=== PATIENT | male | born 1955 | race Caucasian/White ===

== ENCOUNTER 2017-02-15 07:34 | Day surgery (SDC) | payer BC ==
[~2017-02-15] VITALS: Ht 183 cm; Wt 88.0 kg
[2017-02-15] VITALS (10 sets, daily range): BP systolic 100–124; BP diastolic 54–77; PULSE 58–67; TEMP 89.8–98.4
[2017-02-15] MEDS ORDERED: ALDACTONE 25MG25 M1 PO (08:14)
[2017-02-15] MEDS ORDERED: TOPROL XL 50MG50 MG PO (08:15)
[2017-02-15] MEDS ORDERED: PRINIVIL10 MG PO (08:15)
[2017-02-15] MEDS ORDERED: LIPITOR20 MG PO (08:16)
[2017-02-15] MEDS ORDERED: COUMADIN 2MG2 MG/TAB PO ×2 (08:17→08:18)
[2017-02-15] MEDS ORDERED: TRICOR145 MG PO (08:19)
[2017-02-15] MEDS ORDERED: ASPIRIN E.C. 8181 MG PO (08:20)
[2017-02-15] MEDS ORDERED: EPA FISH OIL1 SGL PO (08:21)
[2017-02-15 08:30] LABS: INR 1.4 (0.8-3.0); PROTHROMBIN TIME 15.7 SECONDS (9.7-12.8)
[2017-02-15 08:46] LABS: CALCIUM 9.3 mg/dL (8.4-10.2); CREATININE, serum 0.92 mg/dL (0.66-1.25)
[2017-02-15] MEDS ORDERED: LOVENOX 8080 MG/0.8 SQ (08:49)
[2017-02-15 08:51] LABS: HEMATOCRIT 42.7 % (42.0-52.0); HEMOGLOBIN 14.9 g/dl (13.5-18.0); MEAN CELL VOLUME 89 fl (80.0-100.0); MEAN CORPUSCULAR HEMOGLOBIN 31 pg (27.0-31.0); MEAN CORPUSCULAR HGB CONC 35 g/dl (33.0-37.0); MEAN PLATELET VOLUME 10.2 fl (7.4-10.4); PLATELET COUNT 252 K/mm3 (130-400); WHITE BLOOD COUNT 7.4 K/mm3 (4.8-10.8)
[2017-02-16 03:37] VITALS: BP 124/79; PULSE 66; TEMP 97.6
[2017-02-16 06:47] LABS: BASO # 0.1 (0.0-0.2); BASO % 0.6 % (0.0-2.0); EOS # 0.2 (0.0-0.7); EOS % 2.7 % (0-4.0); GRAN # 6.1 (1.4-6.5); GRAN % 69.4 % (42.2-75.2); HEMATOCRIT 41.3 % (42.0-52.0); HEMOGLOBIN 13.9 g/dl (13.5-18.0); LYMPH # 1.7 (1.2-3.4); LYMPH % 19.3 % (20.0-51.0); MEAN CELL VOLUME 89 fl (80.0-100.0); MEAN CORPUSCULAR HEMOGLOBIN 30 pg (27.0-31.0); MEAN CORPUSCULAR HGB CONC 34 g/dl (33.0-37.0); MEAN PLATELET VOLUME 9.8 fl (7.4-10.4); MONO # 0.7 (0.1-0.6); MONO % 7.8 % (1.7-9.3); PLATELET COUNT 215 K/mm3 (130-400); RED BLOOD COUNT 4.63 M/mm3 (4.20-5.60); WHITE BLOOD COUNT 8.8 K/mm3 (4.8-10.8)
[2017-02-16 06:56] LABS: INR 1.3 (0.8-3.0); PROTHROMBIN TIME 14.1 SECONDS (9.7-12.8)
[2017-02-16 07:00] LABS: CALCIUM 8.9 mg/dL (8.4-10.2); CREATININE, serum 0.92 mg/dL (0.66-1.25); POTASSIUM 3.8 mmol/L (3.4-5.0)
[2017-02-16 08:40] VITALS: BP 122/71; PULSE 95; TEMP 97.5
[2017-02-16] MEDS ORDERED: TRICOR145 MG PO (11:51)
== END 2017-02-16 12:05 | disposition home or self-care (01) ==
LOC: COL.CAR 07:34 → MEDICAL 12:16 → COL.CAR 02-16 12:05
PROVIDERS: Internal Medicine Cardiovascular Disease
DX: I25.5 Ischemic cardiomyopathy (principal); I25.10 Atherosclerotic heart disease of native coronary artery without angina pectoris; I35.0 Nonrheumatic aortic (valve) stenosis; I25.2 Old myocardial infarction; E78.2 Mixed hyperlipidemia; Z79.01 Long term (current) use of anticoagulants; Z95.818 Presence of other cardiac implants and grafts; Z86.73 Personal history of transient ischemic attack (TIA), and cerebral infarction without residual deficits; Z82.49 Family history of ischemic heart disease and other diseases of the circulatory system
CPT/HCPCS: OP; C1721; C1894; C1895; C1898; J0690; J2250; J3010; J7030

== ENCOUNTER 2020-05-19 09:25 | Day surgery (SDC) | payer MEDICARE, BC ==
[~2020-05-19] VITALS: Ht 182.9 cm; Wt 87.4 kg
[~2020-05-19 09:25] MED LIST: ALDACTONE 25MG25 M1 PO; ASPIRIN E.C. 8181 MG PO; COUMADIN 2MG2 MG/TAB PO; COUMADIN 5MG5 MG/TAB PO; EPA FISH OIL1 SGL PO; LIPITOR20 MG PO; LOVENOX 8080 MG/0.8 SQ; PRINIVIL10 MG PO; TOPROL XL 50MG50 MG PO; TRICOR145 MG PO
[2020-05-19 10:30] VITALS: BP 130/69; PULSE 94; TEMP 98.3
[2020-05-19] MEDS ORDERED: ONE-A-DAY ESSE1 EACH PO (10:44)
[2020-05-19 13:15] VITALS: BP 131/67; PULSE 69; TEMP 98
--- NOTE | 2020-05-19 13:15 | NUR ---
Pt [place] [facility] [facility] [place] from PAC[place]. Pt awake and alert. Pt denies pain or nausea. Coffee with cream and applesauce given per pt request. VSS. Call light within reach.
[2020-05-19 13:30] VITALS: BP 119/69; PULSE 70
--- NOTE | 2020-05-19 13:30 | NUR ---
Pt continues to rest. Tolerating food and fluids without difficulties. Will continue to monitor. Call light within reach.
[2020-05-19] MEDS ORDERED: PERCOCET 325 MG1 TA2 PO (13:38)
--- NOTE | 2020-05-19 13:45 | NUR ---
Pt up to restroom to void. Pt reports "a few blood clots." but was able to urinate. Pt back to room and is dressing. Call light within reach.
--- NOTE | 2020-05-19 14:05 | NUR ---
Discharge instructions reviewed. pt voices understanding. IV site discontinued with all parts intact. Call light within reach.
--- NOTE | 2020-05-19 14:15 | NUR ---
Pt escorted to private car via wheel chair. Pt accompanied home by his .
== END 2020-05-19 14:15 | disposition home or self-care (01) ==
LOC: SDCO 09:25
DX: N20.1 Calculus of ureter (principal); I25.3 Aneurysm of heart; I11.0 Hypertensive heart disease with heart failure; I50.9 Heart failure, unspecified; I25.2 Old myocardial infarction; I25.5 Ischemic cardiomyopathy; I25.10 Atherosclerotic heart disease of native coronary artery without angina pectoris; E78.5 Hyperlipidemia, unspecified; Z20.822 Contact with and (suspected) exposure to COVID-19; Z95.810 Presence of automatic (implantable) cardiac defibrillator; Z79.01 Long term (current) use of anticoagulants; Z79.82 Long term (current) use of aspirin; Z79.899 Other long term (current) drug therapy
CPT/HCPCS: C1769; C2617; J0690; J1100; J2405; J3010; J7030; J7120

== ENCOUNTER 2023-08-17 10:27 | Day surgery (SDC) | payer MEDICARE, BC ==
[~2023-08-17] VITALS: Ht 183 cm; Wt 85.3 kg
[~2023-08-17 10:27] MED LIST changes: +LR 1,000 ML IV SCH; +ONE-A-DAY ESSE1 EACH PO; +PERCOCET 325 MG1 TA2 PO
[2023-08-17] MEDS ORDERED: 1/2 NS 1,000 ML IV SCH (11:00)
[2023-08-17] MEDS ORDERED: NS Flush 10 ML SYRINGE PRN ICA (11:00)
[2023-08-17 11:06] LABS: HEMATOCRIT 42.7 % (42.0-52.0); HEMOGLOBIN 14.8 g/dl (13.5-18.0); MEAN CELL VOLUME 89 fl (80.0-100.0); MEAN CORPUSCULAR HEMOGLOBIN 31 pg (27-31); MEAN CORPUSCULAR HGB CONC 35 g/dl (33.0-37.0); MEAN PLATELET VOLUME 9.2 fl (7.4-10.4); PLATELET COUNT 237 K/mm3 (130-400)
[2023-08-17 11:11] LABS: INR 3.5 (0.8-3.0)
[2023-08-17] MEDS ORDERED: FLONASEALLERGY NS (11:14)
[2023-08-17 11:16] VITALS: BP 147/82; PULSE 60; TEMP 98.5
[2023-08-17 11:25] LABS: CALCIUM 9.3 mg/dL (8.4-10.2); POTASSIUM 3.9 mEq/L (3.5-4.5)
[2023-08-17 12:49] VITALS: BP 98/71; PULSE 67
--- NOTE | 2023-08-17 12:59 | NUR ---
PATIENT ALERT AND ORIENTED, REPORTS MILD SORE THROAT. VITAL SIGNS STABLE. SPOUSE BROUGHT TO BEDSIDE, PLAN OF CARE REVIEWED AND QUESTIONS INVITED. BED IN LOWEST POSITION, X3 BEDRAILS IN PLACE, CALL LIGHT WITHIN REACH. PATIENT PROVIDED PO FLUIDS. TRANSFER OF CARE TO TED DEMPSEY.
[2023-08-17 13:00] VITALS: BP 111/71; PULSE 61
[2023-08-17 13:15] VITALS: BP 113/82; PULSE 61
[2023-08-17 13:30] VITALS: BP 119/70; PULSE 62
[2023-08-17] MEDS ORDERED: Menthol Cough/Sore Throat LOZENGE MM PRN (13:30)
[2023-08-17 13:45] VITALS: BP 114/63; PULSE 62
--- NOTE | 2023-08-17 13:46 | NUR ---
DC instructions reviewed with pt and . Both express understanding. Pt has been steady on feet in room, up with standby assist. Swallowing without issue, although does have some soreness to throat. Pharmacy called for cough drop per Dr Borges. Pt sitting up in chair beside .
--- NOTE | 2023-08-17 14:00 | NUR ---
Pt states he is ready to discharge home, does not want to wait for cough drop from pharmacy. He states throat slightly sore, but has been able to swallow 2 cups of water and granola bar without issue. He is steady on feet in room. He is assisted out to 's car by wheelchair.
[2023-08-17] MEDS ORDERED: NS Flush 10 ML SYRINGE BID ICA SCH (21:00)
== END 2023-08-17 14:00 | disposition home or self-care (01) ==
LOC: COL.CAR 10:27
PROVIDERS: Internal Medicine Cardiovascular Disease
DX: I35.0 Nonrheumatic aortic (valve) stenosis (principal); R93.1 Abnormal findings on diagnostic imaging of heart and coronary circulation
CPT/HCPCS: J2704

== ENCOUNTER 2023-11-30 10:57 | Inpatient (IN) | payer MEDICARE, BC ==
[~2023-11-30] VITALS: Ht 177.8 cm; Wt 81.6 kg
[2023-11-30] VITALS (356 sets, daily range): BP systolic 91–105; BP diastolic 56–66; PULSE 75–76; TEMP 97.9–98; O2SAT 72–100
[~2023-11-30 10:57] MED LIST changes: +FLONASEALLERGY NS; -LR 1,000 ML IV SCH
[2023-11-30] MEDS ORDERED: 1/2 NS 1,000 ML IV SCH ×2 (11:15→16:15)
[2023-11-30] MEDS ORDERED: Amiodarone 450 MG in D5W Excel 250 ML IV SCH ×2 (11:38→19:15)
[2023-11-30 12:10] LABS: BASO # 0.1 K/mm3 (0.0-0.2); BASO % 0.7 % (0.0-2.0); EOS # 0.1 K/mm3 (0.0-0.7); EOS % 0.8 % (0.0-4.0); GRAN # 7.6 K/mm3 (1.4-6.5); GRAN % 75.3 % (42.2-75.2); HEMATOCRIT 44.4 % (42.0-52.0); HEMOGLOBIN 14.9 g/dl (13.5-18.0); LYMPH # 1.6 K/mm3 (1.2-3.4); LYMPH % 16.2 % (20.0-51.0); MEAN CELL VOLUME 90 fl (80.0-100.0); MEAN CORPUSCULAR HEMOGLOBIN 30 pg (27-31); MEAN CORPUSCULAR HGB CONC 34 g/dl (33.0-37.0); MEAN PLATELET VOLUME 10.1 fl (7.4-10.4); MONO # 0.7 K/mm3 (0.1-0.6); MONO % 6.5 % (1.7-9.3); PLATELET COUNT 286 K/mm3 (130-400); RED BLOOD COUNT 4.95 M/mm3 (4.20-5.60); REDCELL DISTRIBUTION WIDTH-CV 13.7 % (11.5-14.5)
[2023-11-30 12:31] LABS: INR 4.7 (0.8-3.0)
[2023-11-30 12:38] LABS: PROTHROMBIN TIME 48.5 SECONDS (9.7-12.8)
[2023-11-30 12:40] LABS: ALBUMIN 3.6 g/dL (3.4-4.8); BILIRUBIN,TOTAL 0.6 mg/dL (0.2-1.2); CALCIUM 9.6 mg/dL (8.4-10.2); CREATININE, serum 2.08 mg/dL (0.72-1.25); POTASSIUM 4.2 mEq/L (3.5-4.5); TOTAL PROTEIN 6.6 g/dl (6.2-8.1)
[2023-11-30] MEDS ORDERED: PACERONE200 MG PO (12:59)
[2023-11-30 13:02] LABS: TROPONIN-I 0.137 ng/mL (0.00-0.033)
--- NOTE | 2023-11-30 14:10 | NUR ---
Pt arrived to the ICU alongside TED Jessica. VSThom at time of arrival. Pt transferred from ED cart to ICU bed without difficulty. IV amiodarone without complications. Admission intake and assessment performed by this RN. at bedside shortly after pt arrival. Pt does not have any concerns or complaints at this time. Pt shoes, shirt, and pants placed in bedside cabinet. Pt phone at bedside with pt.
[2023-11-30] MEDS ORDERED: Acetaminophen 325 MG TAB PO PRN (14:30)
[2023-11-30] MEDS ORDERED: Ondansetron 4 MG/2 ML VIAL IV PRN (14:30)
[2023-11-30] MEDS ORDERED: MOTRIN 400400 MG/TAB PO (15:09)
[2023-11-30 17:10] LABS: URINE COLOR YELLOW (YELLOW)
[2023-11-30 17:11] LABS: URINE APPEARANCE Clear (CLEAR/HAZY); URINE BLOOD Negative (NEGATIVE); URINE GLUCOSE Negative (NEGATIVE); URINE KETONE Negative (NEGATIVE); URINE NITRATE Negative (NEGATIVE); URINE PROTEIN(semi-quant) Negative (NEGATIVE); URINE UROBILINOGEN 0.2 E.U/dL (0.2-1.0)
[2023-11-30 17:23] LABS: COLLECTION METHOD CLEAN CATCH
--- NOTE | 2023-11-30 19:58 | NUR ---
Received report from both TED Hummel and TED Delgado. Pt is resting in bed with the call light within reach and bed in low position. Vitals are stable at this time and bed alarms on. Amio and IVF's are currently running at this time. Will continue with pt care.
[2023-11-30] MEDS ORDERED: Atorvastatin 20 MG TAB PO SCH (21:00)
[2023-12-01] VITALS (507 sets, daily range): BP systolic 104–130; BP diastolic 69–88; PULSE 75–83; TEMP 97.5–98.6; O2SAT 80–100
[2023-12-01 06:04] LABS: CALCIUM 8.6 mg/dL (8.4-10.2); CREATININE, serum 1.35 mg/dL (0.72-1.25); POTASSIUM 4.3 mEq/L (3.5-4.5)
--- NOTE | 2023-12-01 06:06 | NUR ---
Pt had an uneventful night. Vitals were stable throughout the night with amio running and is at the same rate. Pt denies pain throughout the night. Pt is currently resting in bed with the call light within reach and bed alarms on and bed in low position. Will give report to day shift nurse.
[2023-12-01 06:08] LABS: BASO # 0.1 K/mm3 (0.0-0.2); BASO % 0.6 % (0.0-2.0); EOS # 0.2 K/mm3 (0.0-0.7); GRAN # 8.5 K/mm3 (1.4-6.5); GRAN % 78.5 % (42.2-75.2); HEMATOCRIT 42.4 % (42.0-52.0); HEMOGLOBIN 14.5 g/dl (13.5-18.0); LYMPH # 1.3 K/mm3 (1.2-3.4); LYMPH % 11.6 % (20.0-51.0); MEAN CELL VOLUME 88 fl (80.0-100.0); MEAN CORPUSCULAR HEMOGLOBIN 30 pg (27-31); MEAN CORPUSCULAR HGB CONC 34 g/dl (33.0-37.0); MEAN PLATELET VOLUME 9.8 fl (7.4-10.4); MONO # 0.7 K/mm3 (0.1-0.6); MONO % 6.9 % (1.7-9.3); PLATELET COUNT 216 K/mm3 (130-400); RED BLOOD COUNT 4.81 M/mm3 (4.20-5.60); REDCELL DISTRIBUTION WIDTH-CV 13.5 % (11.5-14.5)
[2023-12-01 06:22] LABS: INR 5.2 (0.8-3.0); PROTHROMBIN TIME 53.8 SECONDS (9.7-12.8)
--- NOTE | 2023-12-01 08:00 | NUR ---
Pt resting quietly in bed. VSS. IV amiodarone infusing to R AC IV without difficulty or complications. Pt does not complain of pain or discomfort at this time. Morning medications administered without difficulty. Pt alerted nursing staff that he was feeling slightly "flushed" for brief periods of time. Pt denies chest pain. BP and P checked, WNL. Dr. Styles notified of most recent PT and INR values. Will continue to monitor pt for worsening periods of "flushed" feeling.
[2023-12-01] MEDS ORDERED: Fenofibrate 54 MG TABLET PO SCH (09:00)
[2023-12-01] MEDS ORDERED: Fenofibrate (Tricor) 145 MG **** subs to Fenofibrate (Lofibra) 162 MG PO SCH (09:00)
[2023-12-01] MEDS ORDERED: Multivitamin TAB PO SCH (09:00)
[2023-12-01] MEDS ORDERED: Amiodarone 200 MG TAB PO SCH (10:33)
--- NOTE | 2023-12-01 13:00 | NUR ---
Pt received orders to transfer to the medical floor. Report called to TED Friend at 1230. Pt transferred to medical floor via wheelchair with and this RN. Pt belongings (pants, shirt, phone, shoes) with pt at time of transfer. Pt belongings placed in cabinet upon arrival to medical floor. TED Friend to bedside to greet pt. Transfer of care completed at this time.
--- NOTE | 2023-12-01 13:06 | NUR ---
Patient arrived to the medical floor by wheelchair. Alert and oriented x 4. States some times he feesl some disorientation but right now he is ok. Lunch tray was just delivered. Daughter is at bedside.
--- NOTE | 2023-12-01 13:38 | NUR ---
Patient finished with most of his tray. Aware of plan of care. Assessment shift completed. Call light within reach.
--- NOTE | 2023-12-01 14:10 | NUR ---
Reddness and edema noted on right hand where patient was getting amio gtt. Pt denies pain or discomfort. Reported to Charge Nurse, Jess JEAN, and Dr. Styles, who just ordered warm compression and elevation. Applied to pt.
--- NOTE | 2023-12-01 15:46 | NUR ---
make ready worker met with patient and spouse, Saskia #[phone] to complete a discharge planning initial assessment. Patient states that he is independent with his activities of daily living and denies unmet needs at home. Patient's primary care provider is Dr Vasquez and provides worker with copies of patient's living will and durable power of securities attorney for health care. Worker placed patient's advance directives on the medical chart. Discharge plan: Home with spouse.
--- NOTE | 2023-12-02 01:20 | NUR ---
NURSING SHIFT ASSESSMENT COMPLETED. THE PATIENT WAS ALERT AND ORIENTED. THE PLAN OF CARE AND EVENING MEDICATIONS REVIEWED. THE PATIENT IS UP INDEPENDENTLY IN THE ROOM WITH A STEADY GAIT. THE PATIENT DENIED NEEDS OR DISCOMFORT. CALL LIGHT AND PERSONAL BELONGINGS AVAILABLE AND WITHIN REACH.
[2023-12-02 04:00] VITALS: BP 99/66; PULSE 75; TEMP 97.8
[2023-12-02 06:39] LABS: BASO % 0.5 % (0.0-2.0); EOS # 0.2 K/mm3 (0.0-0.7); EOS % 2.4 % (0.0-4.0); GRAN # 6.2 K/mm3 (1.4-6.5); GRAN % 75.8 % (42.2-75.2); HEMOGLOBIN 14.5 g/dl (13.5-18.0); LYMPH # 1.1 K/mm3 (1.2-3.4); LYMPH % 13.2 % (20.0-51.0); MEAN CELL VOLUME 88 fl (80.0-100.0); MEAN CORPUSCULAR HEMOGLOBIN 30 pg (27-31); MEAN CORPUSCULAR HGB CONC 34 g/dl (33.0-37.0); MEAN PLATELET VOLUME 9.9 fl (7.4-10.4); MONO # 0.7 K/mm3 (0.1-0.6); MONO % 7.9 % (1.7-9.3); PLATELET COUNT 239 K/mm3 (130-400); REDCELL DISTRIBUTION WIDTH-CV 13.7 % (11.5-14.5)
[2023-12-02 06:59] LABS: CALCIUM 9.3 mg/dL (8.4-10.2); CREATININE, serum 1.28 mg/dL (0.72-1.25); POTASSIUM 4.2 mEq/L (3.5-4.5)
--- NOTE | 2023-12-02 07:00 | NUR ---
PT IS RESTING IN BED. PT IS ON RA. PT IS PACED ON TELE. PT IS AXOX4. PT INSTRUCTED TO CALL WITH ALL NEEDS.
[2023-12-02 07:13] VITALS: BP 110/71; PULSE 77; TEMP 98.4
[2023-12-02 10:18] LABS: INR 3.9 (0.8-3.0); PROTHROMBIN TIME 40.7 SECONDS (9.7-12.8)
[2023-12-02] MEDS ORDERED: CORDARONE200 MG/TAB PO (12:12)
--- NOTE | 2023-12-02 13:31 | NUR ---
1310-Pt escorted out for discharge by [facility]3] PCT.
== END 2023-12-02 13:10 | disposition home or self-care (01) | DRG 309 ==
LOC: COL.ER 10:57 → ICU 13:32 → MEDICAL 14:03
PROVIDERS: Internal Medicine; Personal Emergency Response Attendant; Physician Assistant; ADMIT Internal Medicine
PROC: 5A2204Z Restoration of Cardiac Rhythm, Single (ICD-10-PCS; principal; 2023-11-30)
DX: I47.29 Other ventricular tachycardia (principal); E87.20 Acidosis, unspecified; N17.9 Acute kidney failure, unspecified; I25.10 Atherosclerotic heart disease of native coronary artery without angina pectoris; I10 Essential (primary) hypertension; I95.9 Hypotension, unspecified; T45.515A Adverse effect of anticoagulants, initial encounter; R79.89 Other specified abnormal findings of blood chemistry; I35.0 Nonrheumatic aortic (valve) stenosis; E78.00 Pure hypercholesterolemia, unspecified; M19.90 Unspecified osteoarthritis, unspecified site; I25.5 Ischemic cardiomyopathy; R79.1 Abnormal coagulation profile; N40.0 Benign prostatic hyperplasia without lower urinary tract symptoms; Z95.810 Presence of automatic (implantable) cardiac defibrillator; I25.2 Old myocardial infarction; Z86.73 Personal history of transient ischemic attack (TIA), and cerebral infarction without residual deficits; Z87.442 Personal history of urinary calculi; Z85.828 Personal history of other malignant neoplasm of skin; Z79.899 Other long term (current) drug therapy; Z79.01 Long term (current) use of anticoagulants; Z79.82 Long term (current) use of aspirin
CPT/HCPCS: J0282; J2704; J7060

== ENCOUNTER 2023-12-13 10:50 | Emergency (ER) | payer MEDICARE, BC ==
[~2023-12-13] VITALS: Ht 177.8 cm; Wt 84.1 kg
[~2023-12-13 10:50] MED LIST changes: +CORDARONE200 MG/TAB PO; +MOTRIN 400400 MG/TAB PO; +PACERONE200 MG PO
[2023-12-13] MEDS ORDERED: NS 1,000 ML IV ONE (11:15)
[2023-12-13 12:00] LABS: BASO # 0.1 K/mm3 (0.0-0.2); BASO % 0.8 % (0.0-2.0); EOS # 0.1 K/mm3 (0.0-0.7); EOS % 1.4 % (0.0-4.0); GRAN # 7.9 K/mm3 (1.4-6.5); GRAN % 83.3 % (42.2-75.2); HEMATOCRIT 44.2 % (42.0-52.0); HEMOGLOBIN 14.4 g/dl (13.5-18.0); LYMPH # 0.8 K/mm3 (1.2-3.4); LYMPH % 8.2 % (20.0-51.0); MEAN CELL VOLUME 92 fl (80.0-100.0); MEAN CORPUSCULAR HEMOGLOBIN 30 pg (27-31); MEAN CORPUSCULAR HGB CONC 33 g/dl (33.0-37.0); MEAN PLATELET VOLUME 10.5 fl (7.4-10.4); MONO # 0.5 K/mm3 (0.1-0.6); MONO % 5.7 % (1.7-9.3); PLATELET COUNT 262 K/mm3 (130-400); RED BLOOD COUNT 4.83 M/mm3 (4.20-5.60); REDCELL DISTRIBUTION WIDTH-CV 13.9 % (11.5-14.5)
[2023-12-13 12:03] LABS: ALBUMIN 3.7 g/dL (3.4-4.8); BILIRUBIN,TOTAL 0.5 mg/dL (0.2-1.2); CALCIUM 9.4 mg/dL (8.4-10.2); CREATININE, serum 1.59 mg/dL (0.72-1.25); POTASSIUM 4.4 mEq/L (3.5-4.5); TOTAL PROTEIN 6.9 g/dl (6.2-8.1)
[2023-12-13] MEDS ORDERED: Adenosine 6 MG/2 ML VIAL IV ONE (12:15)
[2023-12-13 12:19] LABS: PROTHROMBIN TIME 74.6 SECONDS (9.7-12.8)
[2023-12-13 12:20] LABS: INR 7.2 (0.8-3.0)
[2023-12-13 20:12] VITALS: BP 105/81; PULSE 114
== END 2023-12-13 20:12 | disposition short-term general hospital (02) ==
LOC: COL.ER 10:50
PROVIDERS: Physician Assistant
DX: I47.20 Ventricular tachycardia, unspecified (principal); I25.2 Old myocardial infarction; Z95.0 Presence of cardiac pacemaker
CPT/HCPCS: J7030